=== PATIENT | male | born 1995 | race Caucasian/White ===

== ENCOUNTER 2023-11-15 19:40 | Emergency (ER) | payer MEDICAID ==
[~2023-11-15] VITALS: Ht 188 cm; Wt 80.0 kg
[2023-11-15 19:54] VITALS: BP 140/74; PULSE 86; RESP 16; TEMP 98.2; O2SAT 100
== END 2023-11-15 22:19 | disposition home or self-care (01) ==
LOC: ER 19:40
DX: S01.511D Laceration without foreign body of lip, subsequent encounter (principal); Z88.8 Allergy status to other drugs, medicaments and biological substances; X58.XXXD Exposure to other specified factors, subsequent encounter
CPT/HCPCS: 99281